=== PATIENT | female | born 1985 | race Two or more races ===

== ENCOUNTER 2020-08-29 11:27 | Outpatient (REF) | payer OTHER, SELFPAY ==
--- NOTE | 2020-08-29 11:36 | XR_ITS ---
EXAMINATION: XR SHOULDER, RIGHT CLINICAL INFORMATION: Pain COMPARISON: None TECHNIQUE: AP external rotation, Grashey, scapular Y, and axillary views of the right shoulder. FINDINGS: Bone alignment is normal. No fracture or dislocation is seen. Joint spaces are normal. Soft tissues are normal. XR/XR shoulder RT min 2V IMPRESSION: Normal right shoulder.
== END 2020-08-29 11:28 | disposition home or self-care (01) ==
LOC: HO.HMGCX 11:27
PROVIDERS: Visit Provider Nurse Practitioner Family
DX: M25.511 Pain in right shoulder (principal)
CPT/HCPCS: 73030

== ENCOUNTER 2022-10-24 17:10 | Outpatient (REF) | payer OTHER, SELFPAY ==
[2022-10-24 17:21] LABS: MANUAL DIFF FLAG NO
[2022-10-24 17:37] LABS: Basophils Percent Auto 0.5 % (0-2); Eosinophils Absolute Auto 0.2 X10*3/uL (0.0-0.4); Eosinophils Percent Auto 2.1 % (0-4); Hematocrit 35.8 % (37.0-47.0); Hemoglobin 12.1 g/dl (12.0-16.0); Imm Gran Abs Auto 0.01 X10*3/uL (0.00-0.03); Imm Gran Pct Auto 0.1 % (0.0-0.4); Lymphocytes Absolute Auto 2.1 X10*3/uL (1.2-4.9); Lymphocytes Percent Auto 27.6 % (20-40); Mean Corpuscular HGB Conc 33.8 g/dl (31.0-35.0); Mean Corpuscular Hemoglobin 30.7 pg (27.0-33.0); Mean Corpuscular Volume 90.9 fL (80.0-98.0); Mean Platelet Volume 9.4 fL (9.4-12.3); Monocytes Absolute Auto 0.6 X10*3/uL (0.1-1.2); Monocytes Percent Auto 7.5 % (2-11); Neutrophils Absolute Auto 4.8 x10*3/uL (2.0-8.3); Neutrophils Percent Auto 62.2 % (45-73); Platelet Count 364 X10*3/uL (160-400); Red Blood Count 3.94 X10*6/uL (4.20-5.50); Red Cell Distribution Width 12.3 % (11.0-16.0); White Blood Count 7.7 X10*3/uL (4.8-10.8)
== END 2022-10-24 17:11 | disposition home or self-care (01) ==
LOC: HO.LAB 17:10
PROVIDERS: PCP Internal Medicine; Visit Provider Physician Assistant Medical
DX: N63.31 Unspecified lump in axillary tail of the right breast (principal)
CPT/HCPCS: 36415; 85025

== ENCOUNTER 2022-10-28 08:51 | Outpatient (REF) | payer OTHER, SELFPAY ==
--- NOTE | ~2022-10-28 | MM_ITS ---
EXAMINATION: MM DIAGNOSTIC DIGITAL BREAST TOMOSYNTHESIS, BILATERAL US DIAGNOSTIC ULTRASOUND BREAST (AXILLA), RIGHT CLINICAL INFORMATION: 37-year-old with recent palpable concern high right axilla for 5 days. Symptoms resolved today. The lifetime risk of breast cancer based on the Tyrer-Cuzick Model is 11%. COMPARISON: Bilateral mammography and right breast ultrasound 11/03/2016. TECHNIQUE: Digital breast tomosynthesis is performed in both the craniocaudal and mediolateral oblique views along with computer-aided detection (CAD). Synthesized 2D images are generated from the tomosynthesis. Ultrasound is targeted to the area of clinical concern corresponding to the right axilla. Grayscale imaging and color Doppler are performed without and with harmonics. FINDINGS: There are scattered areas of fibroglandular density (ACR BI-RADS breast composition Category b). There are no significant masses, abnormal calcifications, or other abnormalities. No skin thickening or coarsening of the Austin's ligaments. Symptom marker overlies right axillary node. Ultrasound demonstrates no cystic or solid mass or intradermal lesion. There is no architectural abnormality. No hyperemia or skin thickening or edema tracking in soft tissue plane. There is a right axillary node near the area of symptoms measuring 1.1 cm in short axis with normal shannen architecture and color flow. Smaller node also noted in this area. No lymphadenopathy demonstrated. Results are discussed with the patient at time of visit. MM/MM tomosynthesis diagnostic BI IMPRESSION: 1. No mammographic evidence of malignancy. 2. Unremarkable targeted right axillary ultrasound. No mass or adenopathy. ASSESSMENT: BI-RADS 2: Benign RECOMMENDATION: 1. Patient should be managed based on the clinical impression. If there is still clinically palpable concern, further evaluation may be considered with surgical consult. 2. Otherwise, routine annual screening mammography, beginning age 40, or earlier as clinical risk factors warrant. This patient's information was entered into a reminder system with a target due date for their next mammogram.
== END 2022-10-28 08:52 | disposition home or self-care (01) ==
LOC: HO.MAMMO 08:51
PROVIDERS: PCP Internal Medicine; Visit Provider Physician Assistant Medical
DX: R22.31 Localized swelling, mass and lump, right upper limb (principal)
CPT/HCPCS: 76642; 77062; 77066

== ENCOUNTER 2023-06-23 13:35 | Outpatient (AMB) | payer OTHER, SELFPAY ==
--- OUTSIDE RECORDS SUMMARY | 2023-06-23 13:37 | XMS_ITS | Continuity of Care Document ---
Author Name Unknown Organization [facility] ter Address [address] [place] [address]- Care Team Providers Care Social Staff Worker Name Role Phone Martir Redman MD, Helen Rangel Primary Care Physician [phone] [place] [facility] [place] [id number] Date(s): 09/08/21 - 09/08/[address] [address]- Encounter Diagnosis Corneal abrasion(Final) - 09/08/21 Discharge Disposition: A-D/C Home Attending Physician: Adrian Mace MD Admitting Physician: Adrian Mace MD Referring Physician: Not on Staff, Referring MD Allergies, Adverse Reactions, Alerts Substance Reaction Severity Status NKA Active Immunizations Given and Recorded Vaccine Date Status Refusal Reason Measles/Mumps/Rubella Virus Vaccine 10/11/19 Given Medications albuterol inhaler (OP) 0 Refills, Maintenance Start Date: 03/08/19 Status: Ordered ciprofloxacin 0.3% ophthalmic solution 2 drops, Eye, Right, Every 4 hours, for 7 days, # 5 mL, 0 Refills, Acute 09/15/21 12:46:00 EST, 09/08/21 12:46:00 EST, [facility]hth [facility], [id number], Partial fill upon patient request if the prescription is for a schedule II opioid drug.... Start Date: 09/08/21 Stop Date: 09/15/21 Status: Ordered ciprofloxacin 0.3% ophthalmic solution 2 drops, Eyes, Both, Every 4 hours, for 7 days, # 5 mL, 0 Refills, Acute 09/15/21 13:12:00 EST, 09/08/21 13:12:00 EST, Ophth Solution, [facility]/pharmacy #[id number], Partial fill upon patient request if the prescription is for a schedule II opioid drug., 2 drops... Start Date: 09/08/21 Stop Date: 09/15/21 Status: Ordered Depo-Provera 400 mg/mL intramuscular suspension 1 mL = 400 mg, Intramuscular, Every 2 months, Maintenance, 08/13/20 8:19:00 EST, Suspension, Partial fill upon patient request if the prescription is for a schedule II opioid drug. Start Date: 08/13/20 Status: Ordered ketorolac 0.45% ophthalmic solution 1 drops, Eyes, Both, 4 times a day, # 30 each, 0 Refills, Maintenance, 09/08/21 13:12:00 EST, Solution, [facility]/pharmacy #[id number], Partial fill upon patient request if the prescription is for a schedule II opioid drug., 1 drops Eyes, Both 4 times a day, 163,... Start Date: 09/08/21 Status: Ordered ketorolac 0.5% ophthalmic solution 2 drops, Eyes, Both, 4 times a day, PRN Pain , Moderate, # 10 mL, 0 Refills, Maintenance, 09/08/21 12:47:00 EST, Solution, [facility] #[id number], Partial fill upon patient request if the prescription is for a schedule II opioid drug., 2 drops Ey... Start Date: 09/08/21 Status: Ordered Readi-Cat 2 oral suspension See Instructions, 2 bottles as per radiology recommendations when the evening before 1 the morning of CAT scan, # 2 pack/packet, 0 Refills, Maintenance, 08/27/20 15:16:00 EST, [facility] #[id number], Partial fill upon patient request if the presc... Start Date: 08/27/20 Status: Ordered Problem List Condition Effective Dates Status Health Status Inform ant Anxiety(Confirmed) Active Asthma(Confirmed) Active Chlamydia(Confirmed) 2004 Active Migraines(Confirmed) Active Vital Signs Most recent to oldest [Reference Range]: 1 2 Height 163 cm (09/08/21 12:09 PM) 163 cm (09/08/21 11:30 AM) Weight 75 kg (09/08/21 12:09 PM) 75 kg (09/08/21 11:30 AM) Oxygen Saturation [94-100 %] 100 % (09/08/21 12:09 PM) 100 % (09/08/21 11:30 AM) Pulse Rate [55-90 bpm] 84 bpm (09/08/21 12:09 PM) 85 bpm (09/08/21 11:30 AM) Body Mass Index [18.5-24.99] 28.23 *H* (09/08/21 11:30 AM) Blood Pressure [90-138/55-84 mm Hg] 118/ 61mm Hg (09/08/21 12:09 PM) 128/61mm Hg (09/08/21 11:30 AM) Respiratory Rate [16-30 br/min] 16 br/mi n (09/08/21 12:09 PM) 16 br/min (09/08/21 11:30 AM) Temperature [96.8-100.4 DegF] 98.5 DegF (09/08/21 11:30 AM) Mode of Delivery (Oxygen) Room air (09/08/21 11:30 AM) Blood pressure sites Arm, right (09/08/21 11:30 AM) Temperature Route Oral (09/08/21 11:30 AM) Dry Weight 75 kg (09/08/21 12:09 PM) 75 kg (09/08/21 11:30 AM) Weight Obtained Via Standing scale (09/08/21 11:30 AM) Dry Weight Obtained Via Standing scale (09/08/21 11:30 AM) Social History Social History Type Response Smoking Status Never (less than 100 in lifetime) entered on: 09/02/19 Sex
--- OUTSIDE RECORDS SUMMARY | 2023-06-23 13:37 | XMS_ITS | Continuity of Care Document ---
Author Name Unknown Organization [facility] ter Address [address] [place] [address]- Care Team Providers Care Box Sealing Inspector Name Role Phone Martir Redman MD, Adelaida Rangel Primary Care Physician [phone] [place] [facility] [place] 09/20/19 - 09/27/[address] [address]- [facility] Attending Physician: Kirt Eng MD Allergies, Adverse Reactions, Alerts Substance Reaction Severity Status NKA Active Medications Adult Aspirin 81 mg oral tablet, chewable 1 tablet = 81 mg, Daily, 0 Refills, Maintenance, 06/21/19 15:32:58 EDT Start Date: 06/21/19 Status: Ordered albuterol inhaler (OP) 0 Refills, Maintenance Start Date: 03/08/19 Status: Ordered famotidine 10 mg oral tablet 1 tablet = 10 mg, By Mouth, 2 times a day, # 20 tablet, 0 Refills, Maintenance, 09/02/19 22:48:00 EST, Tablet, [facility] #[id number], 162, cm, 09/02/19 21:02:00 EST, Height, 67, kg, 03/08/19 16:41:00 EDT, Dry Weight Start Date: 09/02/19 Stop Date: 09/29/19 Status: Ordered Iron Chews = 15 mg, By Mouth, Daily, 0 Refills, Maintenance, 06/21/19 15:33:09 EDT Start Date: 06/21/19 Status: Ordered Premarin Vaginal 0.625 mg/gm cream with applicator See Instructions, Vaginally Daily before dinner, # 42 Gm, 0 Refills, Maintenance Start Date: 10/21/12 Status: Ordered 1 0 Refills, Maintenance, 06/21/19 15:32:51 EDT Start Date: 06/21/19 Status: Ordered Problem List Condition Effective Dates Status Health Status Inform ant Anemia in mother complicatin g , childbirth AND/OR puerperium(Confirmed) 1 09/02/19 Active Anxiety(Confirmed) Active Chlamydia(Confirmed) 2004 Active Pre-eclampsia(Confirmed) Active 1Problem added by Discern Expert Results Microbiology Reports TEST:Group B Strep Culture STATUS:Auth (Verified) BODY SITE: SOURCE:VAGINO COLLECTED DATE/TIME:09/20/19 9:30 AM Group B Strep Culture SPECIMEN DESCRIPTION : VAGINORECTAL SWAB SPECIAL REQUESTS : NONE CULTURE : STREPTOCOCCI, GR.B BETA HEMOLYTIC ISOLATED SUSCEPTIBILITY TESTING NOT ROUTINELY PERFORMED ON THIS ISOLATE. ISOLATION OF GROUP B STREPTOCOCCI FROM THIS PATIENT INDICATES VAGINORECTAL COLONIZATION. PLEASE REFER TO CURRENT ACOG GUIDELINES FOR SCREENING AND MANAGEMENT OF COLONIZED WOMEN. REPORT STATUS : FINAL 09/22/2019 TEST:Urine Culture STATUS:Auth (Verified) BODY SITE: SOURCE:CLEAN COLLECTED DATE/TIME:09/20/19 9:25 AM Urine Culture SPECIMEN DESCRIPTION : CLEAN CATCH (URINE) SPECIAL REQUESTS : NONE CULTURE : <10,000 COL/ML REPORT STATUS : FINAL 09/21/2019 Social History Social History Type Response Smoking Status Never (less than 100 in lifetime) entered on: 09/02/19 Sex
--- OUTSIDE RECORDS SUMMARY | 2023-06-23 13:37 | XMS_ITS | Continuity of Care Document ---
Author Name Unknown Organization [facility] ter Address [address] [place] [address]- Care Team Providers Care Superintendent Distribution Name Role Phone Martir Redman MD, Adelaida Rangel Primary Care Physician [phone] Encounter [facility] [place] Date(s): 10/09/19 - 10/11/[address] [address]- [facility] Discharge Disposition: A-D/C Home Attending Physician: Cande Patricio DO Admitting Physician: Cande Patricio DO Referring Physician: Cande Patricio DO Allergies, Adverse Reactions, Alerts Substance Reaction Severity Status NKA Active Immunizations Given and Recorded Vaccine Date Status Refusal Reason Measles/Mumps/Rubella Virus Vaccine 10/11/19 Given Medications Adult Aspirin 81 mg oral tablet, chewable 1 tablet = 81 mg, Daily, 0 Refills, Maintenance, 06/21/19 15:32:58 EDT Start Date: 06/21/19 Status: Ordered albuterol inhaler (OP) 0 Refills, Maintenance Start Date: 03/08/19 Status: Ordered famotidine 10 mg oral tablet 1 tablet = 10 mg, By Mouth, 2 times a day, # 20 tablet, 0 Refills, Maintenance, 09/02/19 22:48:00 EST, Tablet, [facility] #[id number], 162, cm, 09/02/19 21:02:00 EST, Height, 67, kg, 03/08/19 16:41:00 EDT, Dry Weight Start Date: 09/02/19 Stop Date: 09/29/19 Status: Ordered ibuprofen 800 mg oral tablet 800 mg, 1, tablet, By Mouth, Every 8 hours, PRN, for 10 days, not to exceed 2400 mg/day, # 30 tablet, Refills 0, Tot. Refills 0, Acute 02/21/20 8:40:00 EST, Pain , Moderate, 10/11/19 8:40:00 EST, Route to Pharmacy Electronically, [facility]... Start Date: 10/11/19 Stop Date: 10/21/19 Status: Ordered Iron Chews = 15 mg, By Mouth, Daily, 0 Refills, Maintenance, 06/21/19 15:33:09 EDT Start Date: 06/21/19 Status: Ordered Premarin Vaginal 0.625 mg/gm cream with applicator See Instructions, Vaginally Daily before dinner, # 42 Gm, 0 Refills, Maintenance Start Date: 10/21/12 Status: Ordered 1 0 Refills, Maintenance, 06/21/19 15:32:51 EDT Start Date: 06/21/19 Status: Ordered Tamiflu 75 mg oral capsule 1 capsule = 75 mg, By Mouth, 2 times a day, 0 Refills, Maintenance, 09/30/19 8:45:00 EST Start Date: 09/30/19 Status: Ordered Problem List Condition Effective Dates Status Health Status Inform ant Anxiety(Confirmed) Active Asthma(Confirmed) Active Chlamydia(Confirmed) 2004 Active Migraines(Confirmed) Active Vital Signs Most recent to oldest [Reference Range]: 1 2 3 Height 162 cm (10/11/19 9:31 AM) 162 cm (10/11/19 12:15 AM) 162 cm (10/10/19 10:15 AM) Weight 80.3 kg (10/09/19 5:04 AM) 80.3 kg (10/09/19 12:41 AM) Oxygen Saturation [94-100 %] 99 % (10/11/19 12:15 AM) 99 % (10/09/19 7:00 PM) 99 % (10/09/19 6:45 PM) Pulse Rate [55-90 bpm] 99 bpm *H* (10/11/19 9:31 AM) 86 bpm (10/11/19 12:15 AM) 99 bpm *H* (10/10/19 4:30 PM) Body Mass Index [18.5-24.99] 30.6 *>HHI* (10/09/19 5:04 AM) Blood Pressure [90-138/55-84 mm Hg] 112/67mm Hg (10/11/19 9:31 AM) 115/59mm Hg (10/10/19 4:30 PM) 104/51mm Hg (10/10/19 10:15 AM) Respiratory Rate [16-30 br/min] 18 br/min (10/11/19 7:19 AM) 18 br/min (10/11/19 7:19 AM) 18 br/min (10/11/19 2:07 AM) Temperature [96.8-100.4 DegF] 98.3 DegF (10/11/19 9:31 AM) 98.6 DegF (10/11/19 12:15 AM) 98.7 DegF (10/10/19 4:30 PM) Mode of Delivery (Oxygen) Room air (10/11/19 12:15 AM) Room air (10/09/19 11:07 AM) Room air (10/09/19 7:58 AM) Blood pressure sites Arm, right (10/11/19 9:31 AM) Arm, left (10/10/19 4:30 PM) Arm, left (10/10/19 10:15 AM) Temperature Route Oral (10/11/19 9:31 AM) Oral (10/11/19 12:15 AM) Oral (10/10/19 4:30 PM) Dry Weight 80.3 kg (10/09/19 5:04 AM) 80.3 kg (10/09/19 12:41 AM) Weight Obtained Via Standing scale (10/09/19 12:41 AM) Dry Weight Obtained Via Standing scale (10/09/19 12:41 AM) Sensory deficits None (10/09/19 5:04 AM) Mobility assistance Independent (10/09/19 5:04 AM) Social History Social History Type Response Smoking Status Never (less than 100 in lifetime) entered on: 09/02/19 Sex
--- OUTSIDE RECORDS SUMMARY | 2023-06-23 13:37 | XMS_ITS | Continuity of Care Document ---
Author Name Unknown Organization [facility] ter Address [address] [place] [address]- Care Team Providers Care Electrical Equipment Assembler Name Role Phone Martir Redman MD, Helen Rangel Primary Care Physician Encounter [facility] [place] Date(s): 01/08/22 - 01/08/[address] [address]- Encounter Diagnosis COVID-19(Final) - 01/08/22 Discharge Disposition: A-D/C Home Attending Physician: Maria Ines Alfredo MD Admitting Physician: Maria Ines Alfredo MD Referring Physician: Not on Staff, Referring MD Allergies, Adverse Reactions, Alerts No Known Allergies Immunizations Given and Recorded Vaccine Date Status Refusal Reason Measles/Mumps/Rubella Virus Vaccine 10/11/19 Given Medications albuterol CFC free 90 mcg/inh inhalation aerosol 2, puffs, Inhalation, 4 times a day, PRN, # 18 Gm, Refills 0, Tot. Refills 0, Maintenance, 01/08/2210:51:00 EDT, Aerosol, Route to Pharmacy Electronically, [id number], [facility]/pharmacy #[id number], 163, cm, 09/08/21 12:09:00 EST, Heig... Start Date: 01/08/22 Status: Ordered albuterol inhaler (OP) 0 Refills, Maintenance Start Date: 03/08/19 Status: Ordered Depo-Provera 400 mg/mL intramuscular suspension 1 mL = 400 mg, Intramuscular, Every 2 months, Maintenance, 08/13/20 8:19:00 EST, Suspension, Partial fill upon patient request if the prescription is for a schedule II opioid drug. Start Date: 08/13/20 Status: Ordered ketorolac 0.45% ophthalmic solution 1 drops, Eyes, Both, 4 times a day, # 30 each, 0 Refills, Maintenance, 09/08/21 13:12:00 EST, Solution, [facility]/pharmacy #[id number], Partial fill upon patient request if the prescription is for a schedule II opioid drug., 1 drops Eyes, Both 4 times a day, 163,... Start Date: 09/08/21 Status: Ordered ketorolac 0.5% ophthalmic solution 2 drops, Eyes, Both, 4 times a day, PRN Pain , Moderate, # 10 mL, 0 Refills, Maintenance, 09/08/21 12:47:00 EST, Solution, [facility] #[id number], Partial fill upon patient request if the prescription is for a schedule II opioid drug., 2 drops Ey... Start Date: 09/08/21 Status: Ordered nirmatrelvir-ritonavir 150 mg-100 mg oral tablet See Instructions, Paxlovid is a combination of 300 mg nirmatrelvir (two 150mg tablets) with 100mg ritonavir (one 100mg tablet), with all 3 tablets taken together twice daily for 5 days, # 1 pack/packet, 0 Refills, Soft Stop, 01/08/22 10:47:00 EDT, Tab... Start Date: 01/08/22 Status: Ordered Readi-Cat 2 oral suspension See Instructions, 2 bottles as per radiology recommendations when the evening before 1 the morning of CAT scan, # 2 pack/packet, 0 Refills, Maintenance, 08/27/20 15:16:00 [id number], Partial fill upon patient request if the presc... Start Date: 08/27/20 Status: Ordered Problem List Condition Effective Dates Status Health Status Inform ant Anxiety(Confirmed) Active Asthma(Confirmed) Active Chlamydia(Confirmed) 2004 Active Migraines(Confirmed) Active Results Radiology Reports * Exam Date Time Procedure Performing Provider Status 01/08/22 10:44 AM Chest 2 Views Frontal and Lat Manju Mahoney; Karla (Verified) Notes: (Chest 2 Views Frontal and Lat) Reason For Exam: Chest Pain;Other: RESULT: Chest 2 Views Frontal and Lat Chest 2 Views Frontal and Lat HPI: patient diagnosed with COVID yesterday, body aches, sore throat, cough and increased asthma symptoms INDICATION: Chest pain. COMPARISON: None. FINDINGS: LINES AND TUBES: None. LUNGS AND PLEURA: Clear lungs. Normal pulmonary vascularity. No pleural effusion. No pneumothorax. HEART, MEDIASTINUM AND ANGEL: Heart is normal in size. Normal mediastinal and hilar contour. BONES AND SOFT TISSUES: No acute abnormality. IMPRESSION: No evidence of acute abnormality. I have personally reviewed the images and I agree with this report. WSN: [id number] Ordering Physician: Jenny Key Dictated By: Sukhjinder Priest MD Dictated Date/Time: 01/08/22 10:51 a Reviewed By: Kirt Harper MD Signed By: Kirt Harper MD Signed Date/Time: 01/08/22 10:56 am Transcribed By: ANTONIO Transcribed Date/Time: 01/08/22 10:50 am Vital Signs Most recent to oldest [Reference Range]: 1 2 3 Oxygen Saturation [94-100 %] 99 % (01/08/22 1:28 PM) 97 % (01/08/22 9:21 AM) 100 % (01/08/22 9:15 AM) Pulse Rate [55-90 bpm] 72 bpm (01/08/22 1:28 PM) 81 bpm (01/08/22 9:21 AM) 90 bpm (01/08/22 9:15 AM) Blood Pressure [90-138/55-84 mm Hg] 107/67mm Hg (01/08/22 1:28 PM) 97/60mm Hg (01/08/22 9:21 AM) Respiratory Rate [16-30 br/min] 18 br/min (01/08/22:28 PM) 20 br/min (01/08/22 9:21 AM) Temperature [96.8-100.4 DegF] 97.1 DegF (01/08/22 1:28 PM) 97.6 DegF (01/08/22 9:21 AM) Mode of Delivery (Oxygen) Room air (01/08/22 1:28 PM) Room air (01/08/22 9:21 AM) Room air (01/08/22 9:15 AM) Blood pressure sites Arm, right (01/08/22 9:21 AM) Temperature Route Oral (01/08/22 1:28 PM) Oral (5/11/22 9:21 AM) Social History Social History Type Response Smoking Status Never (less than 100 in lifetime) entered on: 09/02/19 Sex
--- OUTSIDE RECORDS SUMMARY | 2023-06-23 13:37 | XMS_ITS | Continuity of Care Document ---
Author Name Unknown Organization [facility] ter Address [address] [place] [address]- Care Team Providers Care Laboratory Associate Name Role Phone Martir Redman MD, Adelaida Rangel Primary Care Physician [phone] Encounter [facility] [place] Date(s): 09/30/19 - 09/30/[address] [address]- [facility] Discharge Disposition: A-D/C Home Attending Physician: Kymberly Maloney MD Admitting Physician: Kymberly Maloney MD Referring Physician: Kymberly Maloney MD Allergies, Adverse Reactions, Alerts Substance Reaction [...] 0 Refills, Maintenance, 09/02/19 22:48:00 EST, Tablet, [facility] #[id number], 162, cm, 09/02/19 21:02:00 EST, Height, 67, kg, 03/08/19 16:41:00 EDT, Dry Weight Start Date: 09/02/19 Stop Date: 09/29/19 Status: Ordered Iron Chews = 15 mg, By Mouth, Daily, 0 Refills, Maintenance, 06/21/19 15:33:09 EDT Start Date: 06/21/19 Status: Ordered Premarin Vaginal 0.625 mg/gm cream with applicator See Instructions, Vaginally Daily before dinner, # 42 Gm, 0 Refills, Maintenance Start Date: 2/21/13 Status: Ordered 1 0 Refills, Maintenance, 06/21/19 [...] AND/OR puerperium(Confirmed) 1 09/02/19 Active Anxiety(Confirmed) Active Asthma(Confirmed) Active Chlamydia(Confirmed) 2004 Active Migraines(Confirmed) Active Pre-eclampsia(Confirmed) Active 1Problem added by Discern Expert Vital Signs Most recent to oldest [Reference Range]: 1 2 3 Weight 80.4 kg (09/30/19 8:29 AM) Oxygen Saturation [94-100 %] 97 % (09/30/19 8:54 AM) 97 % (09/30/19 8:43 AM) Pulse Rate [55-90 bpm] 99 bpm *H* (09/30/19 8:43 AM) Blood Pressure [90-138/55-84 mm Hg] 118/47mm Hg (09/30/19 8:54 AM) 116/57mm Hg (09/30/19 8:43 AM) Respiratory Rate [16-30 br/min] 20 br/min (09/30/19 9:26 AM) 20 br/min (09/30/19 9:05 AM) 20 br/min (09/30/19 8:43 AM) Temperature [96.8-100.4 DegF] 98.2 DegF (09/30/19 8:43 AM) Temperature Route Oral (09/30/19 8:43 AM) Weight Obtained Via Standing scale (09/30/19 8:29 AM) Social History Social History Type Response Smoking Status Never (less than 100 in lifetime) entered on: 09/02/19 Sex
--- OUTSIDE RECORDS SUMMARY | 2023-06-23 13:37 | XMS_ITS | Continuity of Care Document ---
Author Name Unknown Organization [facility] ter Address [address] [place] [address]- Care Team Providers Care Refrigerating Engineer Head Name Role Phone Martir Redman MD, Adelaida Rangel Primary Care Physician Encounter [facility] [place] Date(s): 08/29/19 - 08/29/[address] [address]- [facility] Attending Physician: Not on Staff, Attending MD Allergies, Adverse Reactions, Alerts Substance Reaction Severity Status NKA Active Medications Adult Aspirin 81 mg oral tablet, chewable 1 tablet = 81 mg, Daily, 0 Refills, Maintenance, 06/21/19 15:32:58 EDT Start Date: 06/21/19 Status: Ordered albuterol inhaler (OP) 0 Refills, Maintenance Start Date: 03/08/19 Status: Ordered Iron Chews = 15 mg, [...] Status Health Status Inform ant Anxiety(Confirmed) Active Chlamydia(Confirmed) 2005 Active Pre-eclampsia(Confirmed) Active
[2023-06-23 14:30] VITALS: BP 102/64; PULSE 101; TEMP 36.6; O2SAT 97; BMI 26.6
--- NOTE | 2023-06-23 14:30 | AM.OFFWIN_ITS ---
Intake Vital Signs 06/23/23 14:30 Height 5 ft 5 in Weight 160 lb BMI 26.6 BP 102/64 Blood Pressure Location Lt brachial Position Sitting Pulse 101 H Pulse Source Pulse Oximeter Temp 97.9 F Temp Source Temporal Artery Scan Pulse Oximetry (%) 97 Intake Visit Reasons: EP, Upper abdominal pain [phone] Intake Note: pt is here for c/o upper abd pain/rib cage 3 days Patient Tobacco Use Status: Never used Tobacco Allergies No Known Allergies Allergy (Verified 06/23/23 14:49) Medication List - Last Reconciled 06/23/23 by Ihsan Le MD No Known Home Meds Do you need a note to return to daycare/school/sports/work: Yes HPI EP, Upper abdominal pain [phone] HPI Details 37-year-old female presents to the [facility] for a sick visit. For the past 3 days patient is complaining of epigastric discomfort. Pain is episodic and spasmodic at times. She vomits when the pain becomes intense. No difficulty urinating. Admits to drinking large quantities of alcohol recently. Associated symptoms of belching and burping present. [facility] Surgical History H/O LEEP History of bunionectomy Family History Father Hepatitis Mother Asthma Diabetes Hypertension Maternal Grandmother Hypertension Paternal Grandmother Diabetes Hypertension Leukemia Paternal Aunt Uterine cancer Maternal Aunt Diabetes Breast cancer Social History Patient Tobacco Use Status: Never used Tobacco Physical Exam Vital Signs: Last Vital Signs Temp 97.9 F 06/23/23 14:30 Pulse 101 H 06/23/23 14:30 BP 102/64 06/23/23 14:30 Pulse Ox 97 06/23/23 14:30 BMI result Body Mass Index 26.6 Const General: cooperative and healthy appearing Nutritional Appearance: well nourished Orientation/consciousness: patient oriented x3 Limitations: no limitations HEENT Head: Yes normal to inspection Eyes General: appearance normal, both eyes and all related structures Neck Neck: Yes normal visual inspection Chest Chest palpation & inspection: normal palpation of entire chest wall Resp Effort & Inspection: normal respiratory effort GI Other: Bowel sounds well heard all over. No organomegaly. Neuro General: patient oriented x3 Assessment & Plan Assessment & Plan (1) Abdominal pain: Code(s): R10.9 - Unspecified abdominal pain Plan: Blood work ordered including for serum amylase and lipase. Patient was advised to abstain from alcohol and carbonated drinks. Ppi has been started. If symptoms do not improve, I encouraged her to follow-up here. Orders: Orders Basic Metabolic Panel Today R10.9 - Unspecified abdominal pain Liver Panel Today R10.9 - Unspecified abdominal pain Lipase Today R10.9 - Unspecified abdominal pain Thyroid Stimulating Hormone Today R10.9 - Unspecified abdominal pain Complete Blood Count no Diff Today R10.9 - Unspecified abdominal pain Amylase Today R10.9 - Unspecified abdominal pain Coding Level of Care Code Est Pt Level 4 (97979) Diagnoses Abdominal pain R10.9
== END 2023-06-23 15:03 | disposition home or self-care (01) ==
PROVIDERS: PCP Internal Medicine; Visit Provider Internal Medicine
DX: R10.9 Unspecified abdominal pain (principal)
CPT/HCPCS: 99214

== ENCOUNTER 2023-06-24 11:26 | Outpatient (REF) | payer OTHER, SELFPAY ==
[2023-06-24 13:47] LABS: Hematocrit 38.9 % (37.0-47.0); Hemoglobin 12.7 g/dl (12.0-16.0); Mean Corpuscular HGB Conc 32.6 g/dl (31.0-35.0); Mean Corpuscular Volume 94.9 fL (80.0-98.0); Mean Platelet Volume 10.4 fL (9.4-12.3); Platelet Count 382 X10*3/uL (160-400); Red Cell Distribution Width 13.1 % (11.0-16.0); White Blood Count 6.4 X10*3/uL (4.8-10.8)
[2023-06-24 14:41] LABS: Alanine Aminotransferase 12 U/L (0-31); Albumin Level 4.2 g/dL (3.5-5.0); Alkaline Phosphatase 46 U/L (39-117); Amylase 73 U/L (28-100); Anion Gap 10 (12-20); Aspartate Amino Transferase 18 U/L (5-31); Bilirubin Direct 0.2 mg/dL (0.0-0.5); Bilirubin Total 0.6 mg/dL (0.0-1.0); Blood Urea Nitrogen 9 mg/dL (9-16); Calcium 9.4 mg/dL (8.4-10.2); Carbon Dioxide 24 mmol/L (22-29); Chloride 109 mmol/L (96-108); Estimated Glomerular Filt Rate > 60; Glucose Random 93 mg/dL (60-115); Lipase 19 U/L (8-78); Potassium 3.9 mmol/L (3.3-5.1); Sodium 139 mmol/L (135-145); Total Protein 7.6 g/dL (6.5-8.0)
[2023-06-24 14:57] LABS: Thyroid Stimulating Hormone 0.62 uIU/mL (0.32-4.0)
== END 2023-06-24 11:27 | disposition home or self-care (01) ==
LOC: HO.HMGCLDS 11:26
PROVIDERS: PCP Internal Medicine; Visit Provider Internal Medicine
DX: R10.9 Unspecified abdominal pain (principal)
CPT/HCPCS: 36415; 80048; 80076; 82150; 83690; 84443; 85027

== ENCOUNTER 2024-06-15 09:35 | Outpatient (AMB) | payer OTHER, SELFPAY ==
--- OUTSIDE RECORDS SUMMARY | 2024-06-15 09:37 | XMS_ITS | Continuity of Care Document ---
Author Organization [facility] ter Address [address] [place] [id number]- Care Team Providers Care Voip Network Engineer Name Role Phone Martir Redman MD, Helen Rangel Primary Care Physician [place] [facility] [place]26[place] - 02/26/[address] [address] Discharge Disposition: A-D/C Home Attending Physician: Álvaro Jackson MD Admitting Physician: Álvaro Jackson MD Referring Physician: Álvaro Jackson MD Allergies, Adverse Reactions, Alerts No Known Allergies Immunizations Given and Recorded Vaccine Date Status Refusal Reason Measles/Mumps/Rubella Virus Vaccine 10/11/19 Given Medications albuterol CFC free 90 mcg/inh inhalation aerosol 2, puffs, Inhalation, 4 times a day, PRN, # 18 Gm, Refills 0, Tot. Refills 0, Maintenance, 01/08/2210:51:00 EDT, Aerosol, Route to Pharmacy Electronically, [id number], [facility]/pharmacy #[id number], 163, cm, 09/08/21 12:09:00 EST, Heig... [...] 0 Refills, Maintenance, 09/08/21 13:12:00 EST, Solution, [facility]/pharmacy #[id number], Partial fill upon patient request if the prescription is for a schedule II opioid drug., 1 drops Eyes, Both 4 times a day, 163,... Start Date: 09/08/21 Status: Ordered ketorolac 0.5% ophthalmic solution 2 drops, Eyes, Both, 4 times a day, PRN Pain , Moderate, # 10 mL, 0 Refills, Maintenance, 09/08/21 12:47:00 EST, Solution, [facility] #[id number], Partial fill upon patient request if the [...] 2 pack/packet, 0 Refills, Maintenance, 08/27/20 15:16:[id number], Partial fill upon patient request if the presc... Start Date: 08/27/20 Status: Ordered Problem List Condition Confirmation Course Effective Dates Status Health St at Informant Anxiety Confirmed Active Asthma Confirmed Active Chlamydia Confirmed 2004 Active Migraines Confirmed Active Obese class I Confirmed Active Vital Signs Most recent to oldest [Reference Range]: 1 Height 162 cm (02/26/24 11:18 AM) Weight 68.8 kg (02/26/24 11:05 AM) Oxygen Saturation [94-100 %] 99 % (02/26/24 11:05 AM) Pulse Rate [55-90 bpm] 98 bpm *H* (02/26/24 11:05 AM) Blood Pressure [90-138/55-84 mm Hg] 122/ 69mm Hg (02/26/24 11:05 AM) Respiratory Rate [16-30 br/min] 18 br/mi n (02/26/24 11:05 AM) Temperature [96.8-100.4 DegF] 98.6 DegF (02/26/24 11:05 AM) Mode of Delivery (Oxygen) Room air (02/26/24 11:05 AM) Blood pressure sites Arm, right (02/26/24 11:05 AM) Temperature Route Oral (02/26/24 11:05 AM) Dry Weight 68.8 kg (02/26/24 11:05 AM) Weight Obtained Via Standing scale (02/26/24 11:05 AM) Dry Weight Obtained Via Standing scale (02/26/24 11:05 AM) Social History Social History Type Response Smoking Status Never (less than 100 in lifetime) entered on: 09/02/19 Sex Note * Catherine Stephens RN: PERFORM Event Display: Discharge/Transfer Note Hospital Authored Date: [id number] Nursing Discharge Note Entered On: 02/26/2024 14:17 EDT Performed On: 02/26/2024 14:16 EDT by Catherine Stephens RN Nursing Discharge Note 2 Discharge Time : 02/26/2024 14:16 EDT Discharge Level of Care at Discharge : Home/[facility] Care Patient Left Unit Via : Ambulatory Patient Accompanied Off Unit with : Significant other DC Instructions Provided & Signed by Pt : Yes Patient Understands D/C Instructions : Yes Patient Instructions Discharge Signed : Yes Did Pt have Specialty Bed or Wound Vac : No Catherine Stephens RN - 02/26/2024 14:16 EDT * Catherine Stephens RN: PERFORM Event Display: Patient Education/Instruction Authored Date: [id number] Inpatient Adult Discharge Instructions. [address] [address] Name: DINAH LEE : 1985?? Visit: 02/26/2024 11:02?? Current Date: 02/26/2024 14:11 ?? Account: [id number]?? Inpatient Adult Discharge Instructions We would like to thank you for allowing us to assist you with your healthcare needs. The following includes patient education materials and information regarding your injury/illness. Our entire staffstrives to provide an excellent experience for our patients and their families. PLEASE ENSURE YOU FOLLOW-UP PER THE INSTRUCTIONS BELOW! ?? YOUR OPINION IS IMPORTANT TO US! Please complete the survey you may receive by mail or email. Your feedback will be used to make improvements to the healthcare experiences of our patients and their families. Surveys are administered by [employer] ?? If further treatment with your primary care physician or another doctor is recommended, it is important for you to keep the appointment. Call your primary care physician or return to the Emergency Department immediately if your condition worsens, fails to improve, or new symptoms develop. If you need to find a doctor, you can call [facility] [employer] for a referral at [phone] or toll free at [phone] ([phone]) or log in to [email or web address].. ?? [facility], in keeping with [facility] guidance, no longer requires face masks for staff, patientsor visitors in most situations. Similiar to time spent indoors at other locations, there is the chance that you were exposed to repiratory viruses during your time with us (such as flu or COVID-19). If you develop symptoms concerning for a viral respiratory infection, please seek testing (and treatment if indicated) from your medical provider or home test kit. ?? You can view and manage your care through the patient portal or by using a health care erin of your choosing. [employer]ively is a website that allows you to securely view your medical information including your hospital discharge summary, office visit summaries, medications and follow-up visits. You can also request appointments, renew medications, and request access to your medical information using a health care erin of your choosing, or just ask a question. You can enroll at [email or web address] or register during your next office visit. You have been discharged from [facility], Patient Care Unit: [id number]??. If you have any questions regarding these instructions, including results of studies pending, afteryou leave, please call us and we will be happy to assist you 23/03. [facility] Your Care Team Attending Physician Manuel LAROSE, Álvaro Pedraza?? Consulting Providers Manuel LAROSE, Álvaro Pedraza?? Tests Performed Below is a partial list of the tests performed during your hospitalization. You may have had other tests and procedures not included in this list. Please discuss all test results with your provider. Complete Urinalysis No tests performed during this visit.?? Primary Care Provider Martir Redman MD , Helen Rangel? Advance Directive Health Care Proxy on File No Discharge Vitals Temperature: 98.6 DegF Height: 162 cm Pulse Rate:??98 bpm??High Weight: 68.8 kg Respiratory Rate: 18 br/min ?? Systolic Blood Pressure: 122 mm Hg ?? Diastolic Blood Pressure: 69 mm Hg ?? Oxygen Saturation: 99 % ?? Studies Pending All studies ordered during this hospital stay have been completed unless listed below. Please discuss all pending results with your provider listed above in these instructions. ?? No incomplete studies found?? What to do next Instructions From Your Doctor ?? Orders?? You Need to Schedule the Following Appointments Follow Up with??[facility] DIRECTOR OF GRADUATE ADMISSIONS Group [phone] Discharge Medications DINAH MEADE :1985 Visit Date:02/26/2024 Medications: Please continue your medications until treatment is completed or stopped by your provider. Medications not listed below should be discontinued. Discuss any questions related to medications with your provider. What How Much When Instructions Next Dose Unchanged Albuterol (albuterol CFC free 90 mcg/ inh inhalation aerosol) 2 puff(s) Inhalation 4 times a day as needed for as needed for wheezing Unchanged Albuterol (albuterol inhaler (OP)) Unchanged Barium Sulfate (Readi-Cat 2 oral suspension) See instructions 2 bottles as per radiology recommendations when the evening before 1 the morning of CAT scan ?? Unchanged Ketorolac Ophthalmic (ketorolac 0.45% ophthalmic solution) 1 Drops Both eyes 4 times a day Unchanged Ketorolac Ophthalmic (ketorolac 0.5% ophthalmic solution) 2 Drops Both eyes 4 times a day as needed for Pain , Moderate Unchanged MedroxyPROGESTERone (Depo-Provera 400 mg/ mL intramuscular suspension) 1 Milliliter Intramuscular Every 2 months Unchanged nirmatrelvir-ritonavir (nirmatrelvir-ritonavir 150 mg-100 mg oral tablet) See instructions Paxlovid is a combination of 300 mg nirmatrelvir (two 150mg tablets) with 100mg ritonavir (one 100mg tablet), with all 3 tablets taken together twice daily for 5 days ?? Prescription Given During Visit No new medications prescribed at time of discharge.?? Laboratory Results Below is a partial list of the most recent Laboratory test results done prior to this discharge. You may have had other tests and procedures not included in this list. Please discuss all test resultswith your provider. Complete Urinalysis (02/26/2024) ???Appear/Color, Urine - YELLOW???Specific [place], Urine - 1.017???pH, Urine - 7.0???Albumin, Urine - TRACE???Glucose, Urine - NEGATIVE???Ketones, Urine - NEGATIVE???Bilirubin, Urine - NEGATIVE???Hemoglobin, Urine - NEGATIVE???Nitrite, Urine - NEGATIVE???Leukocyte, Urine - NEGATIVE???Urobilinogen - NORMAL???WBC's, Urine - 1 /HPF???RBC's, Urine - NONE SEEN???Squamous Epith - 9 /HPF???Amorphous Crystals - MODERATE???Mucus - SLIGHT Allergies (NKA means No Known Allergies) NKA Problems Active Problems??(6) Anxiety?? Asthma?? Chlamydia?? Migraines?? Obese class I? Education Materials Below is the list of Educational Leaflet Providered with your Discharge Instructions. [employer] Patient Education - Possible Miscarriage (Threatened )?? [employer] Patient Education - Bleeding During Early ?? Valuables and Belongings I fully understand and agree that [facility] accepts no responsibility for all my personal property including clothing, toilet articles, radios, jewelry, dentures, hearing aids, rings, money, or any other property that is in my possession or is brought to me after admission. I understand certain valuables may be placed in a hospital safe for a short period of time. I understand that the hospital is not liable for loss or damage due to accident, fire, or other natural occurrence while said property is in the safe. I accept full responsibility for any personal property that I keep with me, and will not hold the hospital responsible in case of loss or disappearance. I acknowledge that i have been encouraged to send valuables and belongings home. ? Other Discharge Information ? Pulmonary Rehab Status?? Pulmonary Rehab Discharge Status?? Respiratory Rate: 18 br/min ? Common Emergency Awareness Tips IS IT A STROKE? Act FAST and Check for these signs: FACE Does the face look uneven? ARM Does one arm drift down? SPEECH Does their speech sound strange? TIME Call at any sign of stroke ?? Heart Attack Signs Chest discomfort: Most heart attacks involve discomfort in the center of the chest and lasts more than a few minutes, or goes away and comes back. It can feel like uncomfortable pressure, squeezing, fullness or pain. Discomfort in upper body: Symptoms can include pain or discomfort in one or both arms, back, neck, jaw or stomach. Shortness of breath: With or without discomfort. Other signs: Breaking out in a cold sweat, nausea, or lightheaded. Remember, MINUTES DO MATTER. If you experience any of these heart attack warning signs, call to get immediate medical attention! ?? Smoking can increase your chances of developing chronic health problems and can cause harmful effects to other family members in your house. If you smoke, you are strongly encouraged to quit. Please call [facility] [employer] Link at [phone] or [phone] ([phone]) or log in to [email or web address] for referrals to smoking cessation programs. ?? 833 Suicide & Crisis Lifeline is available 23/03 if you or someone you know needs to find a reason to keep living. By calling 404 you'll be connected to a skilled, trained counselor at a crisis center in your area. INPATIENT DISCHARGE INSTRUCTIONS SIGNATURE PAGE DINAH MEADE Location:[facility] Registration Date and Time:02/26/2024 11:02 EDT Primary Care Physician: Martir Redman MD , Anu, Attending Physician: Manuel LAROSE, Álvaro Pedraza, I DINAH MEADE, have received the above patient education materials/instructions and have verbalized understanding. If ambulance or transport services are being used I further acknowledgebeing given a choice of service. ?? If you need to contact me, please call me at this number: . Patient/Brim Stitcher Name: Patient/Brim Stitcher Signature: Relationship to Patient: Witness Name/Signature: Date: * Catherine Stephens RN: PERFORM Event Display: Patient Education Leaflets Authored Date: [id number] Possible Miscarriage (Threatened ) ?? [id number] Possible Miscarriage (Threatened ) You may be having a miscarriage. Common signs of a miscarriage are pain and bleeding.??A small amount of bleeding can be normal during the first 3 months of . Often the pain and bleeding stop, and you have a normal and baby.??But heavy bleeding or severe cramping can be an early sign of miscarriage. A miscarriage means??an??unexpected loss of your . At this time, your healthcare provider doesn???t know whether you will have a miscarriage, or if things will clear up and your will continue normally. This can be emotionally difficult. There is little that can be done to change the way you feel. But??understand that miscarriages are common. About 1 or 2 out of every [address] Some even end before you know you are . This happens for a number of reasons, and usually the cause is never known. It???s important youknow that it is not your fault. It didn???t happen because you did anything wrong. Having sex or exercising does not cause a miscarriage. These activities are usually safe unless youhave pain or bleeding, or your healthcare provider tells you to stop. Even minor falls won???t cause a miscarriage. Miscarriages happen because things were not developing as they were supposed to. Nomedicine can prevent a miscarriage. Again, understand that things are uncertain right now. You may still have some bleeding. This may be light spotting or like a period, and you may pass some tissue. You may have some cramping. This iswhy follow-up care is important. Home care To improve the chance of keeping??your , you should take these steps: ??? Rest in bed until the pain and bleeding stop. ??? Don???t have sex until your healthcare provider says it???s OK. ??? Use sanitary napkins instead of tampons. ??? Don???t douche. ??? Don???t take aspirin, ibuprofen, or naproxen. ??? Don???t have alcoholic or caffeinated beverages or smoke. ?? Follow-up care Make an appointment with your healthcare provider within the next week, or as directed. If you had an ultrasound,??a radiologist??will??review??it.??You will be told of any new findings that may affect your care. ?? Call 911 Call 911 if you have: ??? Severe pain and very heavy bleeding ??? Severe lightheadedness, passing out, or fainting ??? Rapid heart rate ??? Trouble breathing ??? Confusion or trouble waking up ?? When to seek medical advice Call your healthcare provider right away??if any of the following occur: ??? Vaginal bleeding or pain that lasts for more than 3 days ??? Heavy bleeding. This means soaking 1 new pad an hour over 3 hours. ??? Fever of 100.4??F (38??C) or higher, or as directed by your healthcare provider ??? Pain in your lower belly (abdomen) that gets worse ??? Weakness or dizziness ??? Passage of anything that resembles tissue. This would be pink or grayish membrane or solid material. Save the tissue in a clean container and bring it to your healthcare provider. ?? Last Reviewed Date: 2022 ?? 4607-2468 [employer]. All rights reserved. This information is not intended as a substitute for professional medical care. Always follow your healthcare professional's instructions. ?? * Catherine Stephens RN: PERFORM Event Display: Patient Education Leaflets Authored Date: [id number] Bleeding During Early ?? 04996 Bleeding During Early If you???ve had bleeding early in your , you???re not alone. Many other women have early bleeding, too. And in most cases, nothing is wrong. But your healthcare provider still needsto know about it. They may want to do tests to find out why you???re bleeding. Call your provider if you see bleeding during . Tell your provider if your blood is Rh negative. Then they can figure out if you need anti-D immune globulin treatment. What causes early bleeding? The cause of bleeding early in is often unknown. But many factors early on in may lead to light bleeding (called spotting) or heavier bleeding. These include: ??? Having sex ??? When the embryo implants on the uterine wall ??? Bleeding between the sac membrane and the uterus (subchorionic bleeding) ??? loss (miscarriage) ??? The embryo implants outside of the uterus (ectopic ) ?? If you see spotting Light bleeding is the most common type of bleeding in early . If you see it, call your healthcare provider. Chances are, they will tell you that you can care for yourself at home. ?? If tests are needed Depending on how much you bleed, your healthcare provider may ask you to come in for some tests. A pelvic exam, for instance, can help see how far along your is. You also may have an ultrasound or a Doppler test. These imaging tests use sound waves to check the health of your baby. The ultrasound may be done on your belly or inside your vagina. You may also need a special blood test. This test compares your hormone levels in blood samples taken 2 days apart. The results can help your provider learn more about the implantation of the embryo. Your blood type will also need to be checked to assess if you will need to be treated for Rh sensitization.?? Ultrasound can help check the health of your fetus. ?? Warning signs If your bleeding doesn???t stop or if you have any of the following, get medical care right away: ??? Soaking a sanitary pad each hour ??? Bleeding like you???re having a period ??? Cramping or severe belly pain ??? Feeling dizzy or faint ??? Tissue passing through your vagina ??? Bleeding at any time after the first trimester ?? Questions you may be asked Bleeding early in isn't normal. But it is common. If you???ve seen any bleeding, you may be concerned. But keep in mind that bleeding alone doesn???t mean something is wrong. Just be sure to call your healthcare provider right away. They may ask you questions like these to help find the cause of your bleeding: ??? When did your bleeding start? Is your bleeding very light or is it like a period? Is the blood bright red or brownish? Have you had sex recently? Have you had pain or cramping? Have you felt dizzy or faint? ?? Monitoring your Bleeding will often stop as quickly as it began. Your may go on a normal path again. You may need to make a few extra visits. But you and your baby will most likely be fine. ?? Last Reviewed Date: 2021 ?? 9976-8606 [employer]. All rights reserved. This information is not intended as a substitute for professional medical care. Always follow your healthcare professional's instructions. ?? Patient Care team information Care Team Personnel Name: Martir Redman MD , Helen Rangel Position: Reference Physician Member Role: PCP Address: Address: [address] [place] [address]- Care Team Related Persons Name: TOD KRUSE Address: [address] Address: [address] [place] [address] Name: BRITTANI GILMAN Address: [address] [place] [address] Name: PATIENT STATES, NONE Name: BULL LEE Address: home [address] [place] [address]
--- OUTSIDE RECORDS SUMMARY | 2024-06-15 09:37 | XMS_ITS | Continuity of Care Document ---
Author Organization [facility] Address [address] [place] [address]- Care Team Providers Care Line Inspector Name Role Phone Martir Redman MD, Helen Rangel Primary Care Physician Encounter [facility] Date(s): 05/10/24 - 06/09/24 [facility] [address] [place] [id number] Allergies, Adverse Reactions, Alerts No Known Allergies Immunizations Given and Recorded Vaccine Date Status Refusal Reason Measles/Mumps/Rubella Virus Vaccine 10/11/19 Given Medications albuterol CFC free 90 mcg/inh inhalation aerosol 2, puffs, Inhalation, 4 times a day, PRN, # 18 Gm, Refills 0, Tot. Refills 0, Maintenance, 01/08/2210:51:00 EDT, Aerosol, Route to Pharmacy Electronically, [id number], [facility]/pharmacy #[id number], 163, cm, 09/08/21 12:09:00 EST, Heig... [...] 0 Refills, Maintenance, 09/08/21 13:12:00 EST, Solution, [id number], Partial fill upon patient request if the prescription is for a schedule II opioid drug., 1 drops Eyes, Both 4 times a day, 163,... Start Date: 09/08/21 Status: Ordered ketorolac 0.5% ophthalmic solution 2 drops, Eyes, Both, 4 times a day, PRN Pain , Moderate, # 10 mL, 0 Refills, Maintenance, 09/08/21 12:47:00 EST, Solution, [facility] #[id number], Partial fill upon patient request if the [...] pack/packet, 0 Refills, Maintenance, 08/27/20 15:16:00 EST, [facility] #[id number], Partial fill upon patient request if the presc... Start Date: 08/27/20 Status: Ordered Problem List Condition Confirmation Course Effective Dates Status [facility] atus Informant Anxiety Confirmed Active Asthma Confirmed Active Chlamydia Confirmed 2004 Active Migraines Confirmed Active Obese class I Confirmed Active Social History Social History Type Response Smoking Status Never (less than 100 in lifetime) entered on: 09/02/19 Sex Patient Care team information Care Team Personnel Name: Martir Redman MD , Helen Rangel Position: Reference Physician Member Role: PCP Address: Address: [address] [place] [address]- Care Team Related Persons Name: MUKUL BARDALESTOD Address: Address: home [address] [place] [address] Name: BRITTANI GILMAN Address: home [address] [place] [address] Name: BULL LEE Address: home [address] [place] [id number] Name: CLARENCE BENNETT
--- OUTSIDE RECORDS SUMMARY | 2024-06-15 09:37 | XMS_ITS | Continuity of Care Document ---
Author Organization [facility] Address [address] [place] [address]- Care Team Providers Care Manager Surgery Name Role Phone Martir Redman MD, Anu Primary Care Physician [phone] Encounter [facility] Date(s): 03/22/24 - 03/23/[address] [address]- Discharge Disposition: A-D/C Walkout Attending Physician: Not on Staff, Attending MD Admitting Physician: Not on Staff, Admitting MD Referring Physician: Not on Staff, Referring MD Allergies, Adverse Reactions, Alerts No Known Allergies Immunizations Given and Recorded Vaccine Date Status Refusal Reason Measles/Mumps/Rubella Virus Vaccine 10/11/19 Given Medications albuterol CFC free 90 mcg/inh inhalation aerosol 2, puffs, Inhalation, 4 times a day, PRN, # 18 Gm, Refills 0, Tot. Refills 0, Maintenance, 01/08/2210:51:00 EDT, Aerosol, Route to Pharmacy Electronically, [id number], [facility]/pharmacy #[id number], 163, cm, 09/08/21 12:09:00 EST, Heig... [...] 0 Refills, Maintenance, 09/08/21 13:12:00 EST, Solution, [facility]/pharmacy #[id number], Partial fill upon patient request if the prescription is for a schedule II opioid drug., 1 drops Eyes, Both 4 times a day, 163,... Start Date: 09/08/21 Status: Ordered ketorolac 0.5% ophthalmic solution 2 drops, Eyes, Both, 4 times a day, PRN Pain , Moderate, # 10 mL, 0 Refills, Maintenance, 09/08/21 12:47:00 EST, Solution, [facility] #[id number], Partial fill upon patient request if the [...] 2 pack/packet, 0 Refills, Maintenance, 08/27/20 15:16:00 [facility] #[id number], Partial fill upon patient request if the presc... Start Date: 08/27/20 Status: Ordered Problem List Condition Confirmation Course Effective Dates Status [facility] Informant Anxiety Confirmed Active Asthma Confirmed Active Chlamydia Confirmed 2004 Active Migraines Confirmed Active Obese class I Confirmed Active Vital Signs Most recent to oldest [Reference Range]: 1 2 Height 163 cm (03/22/24 10:43 PM) 163 cm (03/22/24 10:38 PM) Weight 73 kg (03/22/24 10:43 PM) 73 kg (03/22/24 10:38 PM) Oxygen Saturation [94-100 %] 99 % (03/22/24 10:38 PM) Pulse Rate [55-90 bpm] 97 bpm *H* (03/22/24 10:38 PM) Body Mass Index [18.5-24.99 kg/m2] 27.48 kg/m2 *H* (03/22/24 10:38 PM) Blood Pressure [90-138/55-84 mm Hg] 112/ 64mm Hg (03/22/24 10:38 PM) Respiratory Rate [16-30 br/min] 16 br/mi n (03/22/24 10:38 PM) Temperature [96.8-100.4 DegF] 99.0 DegF (03/22/24 10:38 PM) Mode of Delivery (Oxygen) Room air (03/22/24 10:38 PM) Blood pressure sites Arm, left (03/22/24 10:38 PM) Temperature Route Oral (03/22/24 10:38 PM) Dry Weight 73 kg (03/22/24 10:43 PM) 73 kg (03/22/24 10:38 PM) Weight Obtained Via Standing scale (03/22/24 10:38 PM) Dry Weight Obtained Via Standing scale (03/22/24 10:38 PM) Social History Social History Type Response Smoking Status Never (less than 100 in lifetime) entered on: 09/02/19 Sex Patient Care team information Care Team Personnel Name: Martir Redman MD , Helen Rangel Position: Reference Physician Member Role: PCP Address: Address: [address] [place] [address]- Care Team Related Persons Name: TOD KRUSE Address: [id number] Address: home [address] [place] [address] Name: BRITTANI GILMAN Address: home [address] [place] [address] Name: BULL LEE Address: home [address] [place] [address] Name: CLARENCE BENNETT
--- OUTSIDE RECORDS SUMMARY | 2024-06-15 09:37 | XMS_ITS | Continuity of Care Document ---
Author Organization [facility] Address [address] [place] [address]- Care Team Providers Care Network Strategist Name Role Phone Martir Redman MD, Helen Rangel Primary Care Physician Encounter [facility] Date(s): 05/09/24 - 06/08/24 [facility] [address] [place] [id number] Allergies, Adverse Reactions, Alerts No Known Allergies Immunizations Given and Recorded Vaccine Date Status Refusal Reason Measles/Mumps/Rubella Virus Vaccine 10/11/19 Given Medications albuterol CFC free 90 mcg/inh inhalation aerosol 2, puffs, Inhalation, 4 times a day, PRN, # 18 Gm, Refills 0, Tot. Refills 0, Maintenance, 01/08/2210:51:00 EDT, Aerosol, Route to Pharmacy Electronically, [id number], [facility]/pharmacy #[id number], 163, cm, 09/08/21 12:09:00 EST, [...] 0 Refills, Maintenance, 09/08/21 12:47:00 EST, Solution, [facility] #[id number], Partial fill upon patient request if the [...] pack/packet, 0 Refills, Maintenance, 08/27/20 15:16:00 EST, [facility] #[id number], Partial fill upon patient request if the [...] PCP Address: Address: [address] [place] [address]- Care Team Related Persons Name: TOD KRUSE Address: Address: [address] [place] [address] Name: BRITTANI GILMAN Address: home [address] [place] [address] Name: BULL LEE Address: [address] [place] [address] Name: CLARENCE BENNETT
--- NOTE | 2024-06-15 09:38 | MHC.OFFWIV ---
Intake Vital Signs 06/15/24 09:39 Height 5 ft 5 in Weight 177 lb 6 oz BMI 29.5 BP 122/78 Blood Pressure Location Rt brachial Position Sitting Pulse 88 Pulse Source Pulse Oximeter Temp 98.3 F Temp Source Oral Pulse Oximetry (%) 98 Oxygen Delivery Method Room Air Intake Visit Reasons: EP-asthma [phone] Intake Note: Patient here for asthma flare up that has been present for about 4-5 days. She is currently 24 weeks Patient Tobacco Use Status: Never used Tobacco Allergies No Known Allergies Allergy (Verified 06/15/24 09:38) HPI HPI Comments History of Present Illness Details Patient is a 38-year-old female who is currently 24 weeks complaining of worsening shortness of breath and cough over the last 4-5 days. She tells me she has a history of asthma and used to be on a fluticasone inhaler, an albuterol inhaler and albuterol nebulizers but she has not used any of the medication in a long time. She states that she thinks with her , her asthma is getting worse. She tells me that last night she was having difficulty breathing and she was ?worried she would not wake up . She states she tried different positions but still could not breathe. She tried looking for an her inhaler but realized she did not have one. She tells me it is worse when she inhales different scents. She denies any burning in her throat or this being worse after she eats, she tells me she used to take Protonix but not for a long time now. She tells me that this is very different from her GERD cough. PFSH Surgical History H/O LEEP History of bunionectomy Family History Father Hepatitis Mother Asthma Diabetes Hypertension Maternal Grandmother Hypertension Paternal Grandmother Diabetes Hypertension Leukemia Paternal Aunt Uterine cancer Maternal Aunt Diabetes Breast cancer Social History Patient Tobacco Use Status: Never used Tobacco Review of Systems Const All systems reviewed & are unremarkable except as noted in HPI and below Physical Exam Vital Signs: Last Vital Signs Temp 98.3 F 06/15/24 09:39 Pulse 88 10/16/24 09:39 BP 122/78 06/15/24 09:39 Pulse Ox 98 06/15/24 09:39 Oxygen Delivery Method Room Air 06/15/24 09:39 BMI result Body Mass Index 29.5 Const General: cooperative, healthy appearing, comfortable and no acute distress Orientation/consciousness: patient oriented x3 Limitations: no limitations HEENT Head: Yes normal to inspection Ears: hearing grossly normal bilaterally, external ears normal and TM's normal bilaterally General nose exam: Normal external nose present, Normal nares present and No nasal discharge present Face and sinus: Yes normal facial exam and Yes sinuses nontender Mouth: Normal oral and palatal mucosa present and moist mucous membranes Throat: Yes tonsils normal, Yes uvula midline and Yes posterior oropharynx abnormal (Erythema) Eyes General: appearance normal, both eyes and all related structures Neck Neck: Yes normal visual inspection Resp Effort & Inspection: normal respiratory effort, able to speak in complete sentences, Actively coughing, no respiratory distress, not tachypneic, no tripod positioning and no use of accessory muscles Auscultation: clear to auscultation bilaterally Cardio Rate: regular rate Rhythm: regular rhythm Heart sounds: normal S1 and S2 Skin General skin exam: no rashes or lesions noted Neuro General: patient oriented x3 Extrem General: Yes normal to inspection and Yes no clubbing, cyanosis or edema Office Procedures Nebulizer Treatment Nebulizer Treatment 00465-Baazeqixp/MDI RX initial, or Nebulizer Subsequent Treatment Office Meds albuterol sulfate 2.5 mg/3 mL (0.083 %) solution for nebulization Performing Provider: Fanny Chen PA-C Performing Location: [facility] [place] [facility] Administered by: Fanny Chen PA-C on 06/15/24 10:15 Dose Route Admin Location Dispensed Lot Number Expiration Date [facility] Offset [employer] 2.5 mg inhalation 3 mL [id number] 04/24/25 0742-1168-17 MYLAN Assessment & Plan Assessment & Plan (1) Asthma exacerbation, mild: Code(s): J45.901 - Unspecified asthma with (acute) exacerbation Plan: Vital signs are stable and patient well-appearing however Patient was coughing throughout the exam and expressing shortness of breath. We did given albuterol nebulizer treatment in the office with good relief. I refilled all of her asthma medications with 1 refill as her asthma is likely getting worse due to her . I did encourage her to follow up with her PCP in 4-6 weeks. Plan see above Orders: Orders AMB Nebulizer Treatment Today J45.901 - Unspecified asthma with (acute) exacerbation Medications: New albuterol sulfate 1.25 mg (3 mL) inhalation Q4-6H PRN 90 mL 1RF Shortness Of Breath Or Wheezing albuterol sulfate 90 mcg/actuation (Ventolin HFA) 2 puffs inhalation Q4-6H PRN 8.5 grams 1RF shortness of breath or wheezing fluticasone propionate 44 mcg/actuation administer with spacer; rinse mouth each time after using 1 puff inhalation BID 10.6 grams 1RF albuterol sulfate 2.5 mg (3 mL) inhalation ONCE 3 mL 0RF wheezing J45.901 - Unspecified asthma with (acute) exacerbation Coding Level of Care Code Est Pt Level 4 (02910) Diagnoses Asthma exacerbation, mild J45.901 CPT Codes Nebulizer Treatment - Nebulizer Treatment, initial or subsequent: [id number]-Bsmzyoaau/MDI RX initial, or Nebulizer Subsequent Treatment ([id number])
[2024-06-15 09:39] VITALS: BP 122/78; PULSE 88; TEMP 36.8; O2SAT 98; BMI 29.5
== END 2024-06-15 10:31 | disposition home or self-care (01) ==
PROVIDERS: PCP Internal Medicine; Visit Provider Physician Assistant
DX: J45.901 Unspecified asthma with (acute) exacerbation (principal)

== ENCOUNTER → 2024-06-15 09:35 | Outpatient (BNVA) | payer OTHER, SELFPAY | PROVIDERS: PCP Internal Medicine; Visit Provider Physician Assistant | DX: J45.901 Unspecified asthma with (acute) exacerbation (principal) | CPT/HCPCS: 94640; 99212 ==

== ENCOUNTER 2024-07-19 09:19 | Outpatient (AMB) | payer OTHER, SELFPAY ==
--- NOTE | 2024-07-19 09:20 | MHC.PC.OV ---
Vital Signs 07/19/24 09:21 Height 5 ft 5 in Weight 176 lb BMI 29.3 BP 98/54 L Blood Pressure Location Lt brachial Position Sitting Pulse 100 Pulse Source Pulse Oximeter Pulse Oximetry (%) 97 Oxygen Delivery Method Room Air Intake Visit Reasons: new patient asthma [facility] Required: No Allergies No Known Allergies Allergy (Verified 07/19/24 10:13) Medication List - Last Reconciled 07/19/24 by Ihsan Le MD albuterol sulfate 1.25 mg (3 mL) inhalation Q4-6H PRN albuterol sulfate 90 mcg/actuation (Ventolin HFA) 2 puffs inhalation Q4-6H PRN budesonide-formoterol 160-4.5 mcg/actuation (Symbicort) 2 puffs PO BID fluticasone propionate 44 mcg/actuation 1 puff inhalation BID Tobacco use date assessed: 07/19/24 Dental Screening Dental Screen Date: 07/19/24 Did you have a dental visit in the last 12 months?: Yes Did you have a dental problem in the last 6 months where you did not have access to dental care?: No Was dental information given to patient?: Patient has dentist HPI new patient asthma HPI Details The patient is a 38-year-old female presenting with worsening asthma symptoms following a COVID-19 infection. The asthma symptoms began approximately three to four years ago, marked by difficulty breathing and a persistent cough that is notably worsened at night. The patient reports that exposure to irritants such as Clorox also exacerbates her breathing issues. She has been using an albuterol inhaler approximately 14 times a week, depending on symptom severity. She has visited urgent care previously but has not required hospital admission. Oral prednisone was used in the past but not on a regular basis. The patient is currently 29 weeks and 4 days and is not on any prescribed medications despite being advised to take vitamins and iron. Unemployed at present. - Non-smoker and denies substance use. - Resides in [place]. - Mother of three children; her eldest child has health conditions including schizophrenia, Mosaic Gomez Syndrome, and hypothyroidism. [facility] Medical History (Updated 07/19/24 @ 10:14 by Ihsan Le MD) Asthma exacerbation, mild Surgical History H/O LEEP History of bunionectomy Family History Father Hepatitis Mother Asthma Diabetes Hypertension Maternal Grandmother Hypertension Paternal Grandmother Diabetes Hypertension Leukemia Paternal Aunt Uterine cancer Maternal Aunt Diabetes Breast cancer Social History Housing: House Patient Tobacco Use Status: Never used Tobacco Current occupational status: unemployed Cognitive needs: No Hearing needs: No Vision needs: No Questionnaire PHQ-9 Over the last 2 weeks, how often have you been bothered by any of the following problems? 1. Little interest or pleasure in doing things: not at all 2. Feeling down, depressed, or hopeless: not at all 3. Trouble falling or staying asleep, or sleeping too much: nearly every day 4. Feeling tired or having little energy: nearly every day 5. Poor appetite or overeating: nearly every day 6. Feeling bad about yourself - or that you are a failure or have let yourself or your family down: not at all 7. Trouble concentrating on things, such as reading the newspaper or watching television: nearly every day 8. Moving or speaking so slowly that other people could have noticed. Or the opposite - being so fidgety or restless that you have been moving around a lot more than usual: nearly every day 9. Thoughts that you would be better off or of hurting yourself in some way: not at all Total score: 15 Depression Screening Interpretation: Positive Depression Screening Done: Yes 49404 - PHQ-9 Billing: Yes Source: Developed by Drs. Jairo Mercado, Zina Martínez, Nahum Jones and colleagues, with an educational hugh from [employer]. Thrive Questionnaire Date Thrive assessed: 07/12/24 I am a: Patient What is your living situation today?: I have a steady place to live Within the past 12 months, did the food you bought not last and you didn't have the money to get more?: Never true Within the past 12 months, did you worry whether your food would run out before you got money to buy more?: Never true Do you have trouble paying for medicines?: No Do you have trouble getting transportation to medical appointments?: No Do you have trouble paying your heating and electricity bill?: No Do you have trouble taking care of your child, family member or friend?: No Do you have trouble with day-to-day activities such as bathing, preparing meals, shopping, managing finances, etc.?: No Are you currently unemployed and looking for a job?: Yes Are you interested in more education?: Yes Please select the resources that you would like help with: None Currently or been in a relationship where the following occur: No concerns reported THRIVE Score: 0 AUDIT C Alcohol Use Questionnaire (AUDIT-C) 1. How often do you have a drink containing alcohol?: Never 3. How often do you have six or more drinks on one occasion?: Never Total Score: 0 JULIAN-7 AMB Questionnaire JULIAN-7 Date JULIAN - 7 assessed: 07/19/24 Feeling nervous, anxious, or on edge: 0 = Not at all Not being able to stop or control worryin = Not at all Worrying too much about different things: 0 = Not at all Trouble relaxin = Nearly every day Being so restless that it is hard to sit still: 3 = Nearly every day Becoming easily annoyed or irritable: 1 = Several days Feeling afraid as if something awful might happen: 0 = Not at all Total JULIAN-7 score (0-4 normal; 5-9 mild; 10-14 moderate; 15-21 severe): 7 Source: Developed by Drs. Jairo Mercado, Zina Martínez, Nahum Jones and colleagues, with an educational hugh from [employer]. JULIAN-7 Assessment Billing JULIAN-7 Assessment Tool: JULIAN-7 Assessment 09177 Review of Systems Const Details: - Respiratory: Reports persistent cough, worse at night along with difficulty breathing. - Endocrine: Denied any active thyroid issues, but plans to check during the visit. Physical exam (Primary Care) Vital Signs: Last Vital Signs Pulse 100 07/19/24 09:21 BP 98/54 L 07/19/24 09:21 Pulse Ox 97 07/19/24 09:21 Oxygen Delivery Method Room Air 07/19/24 09:21 BMI result Body Mass Index 29.3 Tobacco/Smoking Status: Tobacco use Status Tobacco use date assessed 07/19/24 07/19/24 09:21 Patient Tobacco Use Status Never used Tobacco 07/19/24 09:21 PHQ-9: PHQ-9 Score PHQ-9: Total score 15 07/19/24 10:13 Depression Screening Interpretation: Positive Thrive Assessment: Date of Thrive Assessment Date Thrive assessed 07/12/24 07/19/24 09:21 Currently or been in a relationship where the following occur: No concerns reported Const General: cooperative and healthy appearing Nutritional Appearance: well nourished Orientation/consciousness: patient oriented x3 Limitations: no limitations HENMT Head: Yes normal to inspection Eyes General: appearance normal, both eyes and all related structures Neck Neck: Yes normal visual inspection Chest Chest palpation & inspection: normal palpation of entire chest wall Resp Effort & Inspection: normal respiratory effort Neuro General: patient oriented x3 Coding Level of Care Code New Pt Level 4 (61640) Complex EM visit Add On G2211 Diagnoses Asthma exacerbation, mild J45.901 Additional Codes JULIAN-7 Assessment Billing - JULIAN-7 Assessment Tool: JULIAN-7 Assessment 78027 ([id number]) PHQ-9 - 76066 - PHQ-9 Billing: Yes ([id number]) Assessment & Plan Assessment & Plan (1) Asthma exacerbation, mild: Code(s): J45.901 - Unspecified asthma with (acute) exacerbation Category: Medical Plan: - Asthma: Initiation of an inhaler regimen, specifically prescribing Symbicort, to be used as two puffs twice daily. A referral to a city councilman will be made to further evaluate ongoing respiratory issues. - : Routine care including planned follow-up care. - Laboratory tests to check thyroid function will be ordered as upcoming blood work. Patient was informed and verbally consented to the use of an ambient scribe for clinic note documentation during this visit. Plan The patient and I discussed the likelihood of asthma as the primary diagnosis causing her symptoms. I explained the use of Symbicort, a corticosteroid, which is safe during and indicated the importance of regular use as directed. We reviewed the side effects of inhalers, including the need to rinse the mouth post-usage to avoid oral fungal infections. Given her concerns, a referral to a city councilman was arranged to provide specialized respiratory management. She expressed anxiety about her symptoms, and reassurance was provided regarding -safe asthma management. Orders: Orders Complete Blood Count no Diff Today J45.901 - Unspecified asthma with (acute) exacerbation Liver Panel Today J45.901 - Unspecified asthma with (acute) exacerbation Lipid Panel Today J45.901 - Unspecified asthma with (acute) exacerbation Basic Metabolic Panel Today J45.901 - Unspecified asthma with (acute) exacerbation Thyroid Stimulating Hormone Today J45.901 - Unspecified asthma with (acute) exacerbation UA and rflx microscopic Today J45.901 - Unspecified asthma with (acute) exacerbation Referrals Pulmonology Referral J45.90 - Unspecified asthma with (acute) exacerbation Medications: New budesonide-formoterol 160-4.5 mcg/actuation (Symbicort) 2 puffs PO BID 10.2 grams 1RF
[2024-07-19 09:21] VITALS: BP 98/54; PULSE 100; O2SAT 97; BMI 29.3
== END 2024-07-19 10:12 | disposition home or self-care (01) ==
PROVIDERS: PCP Internal Medicine; Visit Provider Internal Medicine
DX: J45.901 Unspecified asthma with (acute) exacerbation (principal)

== ENCOUNTER → 2024-07-19 09:19 | Outpatient (BNVA) | payer OTHER, SELFPAY | PROVIDERS: PCP Internal Medicine; Visit Provider Internal Medicine | DX: J45.901 Unspecified asthma with (acute) exacerbation (principal) | CPT/HCPCS: 96127; 99202 ==

== ENCOUNTER 2024-07-22 09:44 | Outpatient (AMB) | payer OTHER, SELFPAY ==
[2024-07-22 10:06] VITALS: BP 110/72; PULSE 73; TEMP 36.6; O2SAT 98
--- NOTE | 2024-07-22 10:06 | MHC.OFFWIV ---
Intake Vital Signs 07/22/24 10:06 Height 5 ft 5 in BP 110/72 Blood Pressure Location Lt brachial Position Sitting Pulse 73 Pulse Source Pulse Oximeter Temp 97.9 F Temp Source Oral Pulse Oximetry (%) 98 Intake Visit Reasons: EP sores on lips? Intake Note: pt is here for sore on lip since yesterday Patient Tobacco Use Status: Never used Tobacco Allergies No Known Allergies Allergy (Verified 07/22/24 10:06) Do you need a note to return to daycare/school/sports/work: No HPI HPI Comments History of Present Illness Details History of Present Illness The patient is a 38-year-old female presenting with sores on her lips. These sores began after her lips became dry and cracked open, leading to a possible initial trigger for the outbreak. She reports that this is her first occurrence of oral sores, which developed suddenly yesterday. The sores have transitioned in appearance and are associated with mild pain, particularly at the cracked site. The patient is currently 30 weeks and previously diagnosed with Bacterial Vaginosis. She has not noticed any previous symptoms of HSV-1. The patient expresses concern regarding the contagious nature of the sores and their potential origin, suspecting possible transmission through shared utensils or drinks. 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 The use of [id number] topical treatments, such as Abreva, was recommended as a first-line management approach, given the patient's current symptoms and the reported safety during . It is emphasized that the oral sores are contagious, and preventive measures, such as avoiding sharing drinks and kissing, should be adhered to until the sores have crusted over. An antiviral medication, such as Valacyclovir, is available if the patient opts for systemic treatment and with consideration of her stage. Regarding the bacterial vaginosis, it is noted that the condition is under treatment with metronidazole, and no further specific management is indicated during this visit beyond the expected continuation of the current regimen. Patient was informed and verbally consented to the use of an ambient scribe for clinic note documentation during this visit. [facility] Medical History (Updated 07/22/24 @ 10:23 by Fanny Chen PA-C) Asthma exacerbation, mild Surgical History H/O LEEP History of bunionectomy Family History Father Hepatitis Mother Asthma Diabetes Hypertension Maternal Grandmother Hypertension Paternal Grandmother Diabetes Hypertension Leukemia Paternal Aunt Uterine cancer Maternal Aunt Diabetes Breast cancer Social History Housing: House Patient Tobacco Use Status: Never used Tobacco Current occupational status: unemployed Cognitive needs: No Hearing needs: No Vision needs: No Physical Exam Vital Signs: Last Vital Signs Temp 97.9 F 07/22/24 10:06 Pulse 73 07/22/24 10:06 BP 110/72 07/22/24 10:06 Pulse Ox 98 07/22/24 10:06 Assessment & Plan Assessment & Plan (1) HSV-1 (herpes simplex virus 1) infection: Code(s): B00.9 - Herpesviral infection, unspecified Plan: see above Coding Level of Care Code Est Pt Level 3 (64248) Diagnoses HSV-1 (herpes simplex virus 1) infection B00.9
== END 2024-07-22 10:43 | disposition home or self-care (01) ==
PROVIDERS: PCP Internal Medicine; Visit Provider Physician Assistant
DX: B00.9 Herpesviral infection, unspecified (principal)

== ENCOUNTER → 2024-07-22 09:44 | Outpatient (BNVA) | payer OTHER, SELFPAY | PROVIDERS: PCP Internal Medicine; Visit Provider Physician Assistant | DX: B00.9 Herpesviral infection, unspecified (principal) | CPT/HCPCS: 99212 ==

== ENCOUNTER 2025-03-10 14:47 | Outpatient (REF) | payer OTHER, SELFPAY ==
[2025-03-10 17:25] LABS: Resp Syncy Virus RNA Qual PCR NEGATIVE (Negative); SARS COV2 PCR INHOUSE NEGATIVE (Negative)
== END 2025-03-10 14:48 | disposition home or self-care (01) ==
LOC: HO.LNP 14:47
PROVIDERS: PCP Internal Medicine; Visit Provider Physician Assistant
DX: J06.9 Acute upper respiratory infection, unspecified (principal); J02.9 Acute pharyngitis, unspecified; Z13.9 Encounter for screening, unspecified
CPT/HCPCS: 87637; 87880; 99212

== ENCOUNTER 2025-03-10 14:47 | Outpatient (AMB) | payer OTHER, SELFPAY ==
[2025-03-10 14:55] VITALS: BP 110/60; PULSE 84; TEMP 36.8; O2SAT 95; BMI 28.8
--- NOTE | 2025-03-10 14:55 | MHC.OFFWIV ---
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 Patient has taken TheraFlu without relief of her symptoms. She denies having any fevers, chills, ear pain, difficulty swallowing, cough or shortness for breath. [facility] Medical History (Updated 03/10/25 @ 15:28 by Zofia Hanna PA-C) Asthma exacerbation, mild Surgical History H/O LEEP History of bunionectomy Family History Father Hepatitis Mother Asthma Diabetes Hypertension Maternal Grandmother Hypertension Paternal Grandmother Diabetes Hypertension Leukemia Paternal Aunt Uterine cancer Maternal Aunt Diabetes Breast cancer Social History Housing: House Patient Tobacco Use Status: Never used Tobacco Patient : No Current occupational status: unemployed Cognitive needs: No Hearing needs: No Vision needs: No Female Reproductive History Menstrual Date of last menstrual period: 02/16/25 Review of Systems Const All systems reviewed & are unremarkable except as noted in HPI and below Denies body aches, Denies chills, Denies fatigue, Denies fever(s) and Denies headache(s) Eyes Reports no additional complaints ENT Reports no additional complaints, Denies otalgia, Denies headache(s), Denies nasal congestion, Denies post nasal drip, Denies sinus pain, Denies sinus pressure, Reports sore throat, Denies throat swelling and Denies tongue swelling Card Reports no additional complaints Resp Reports no additional complaints and Denies cough GI Reports no additional complaints Reports no additional complaints Skin/Breast Reports system reviewed and no additional complaints, except as documented Neuro Denies headache(s) Endo Denies fatigue Aller/Immun Denies throat swelling and Denies tongue swelling Physical Exam Vital Signs: Last Vital Signs Temp 98.3 F 03/10/25 14:55 Pulse 84 03/10/25 14:55 BP 110/60 03/10/25 14:55 Pulse Ox 95 03/10/25 14:55 Oxygen Delivery Method Room Air 03/10/25 14:55 BMI result Body Mass Index 28.8 Const General: cooperative, healthy appearing, comfortable, no acute distress, well developed, alert and awake; No in distress or ill appearing Nutritional Appearance: well nourished Orientation/consciousness: patient oriented x3 Limitations: no limitations HEENT Head: Yes normal to inspection and Yes normocephalic Ears: hearing grossly normal bilaterally, external ears normal, TM's normal bilaterally and EAC's normal General nose exam: Normal external nose present Face and sinus: Yes normal facial exam Mouth: Normal oral and palatal mucosa present, oropharynx normal and moist mucous membranes Throat: Yes posterior oropharynx normal (There is no edema, erythema or exudates of the posterior oropharynx) and No postnasal drainage Eyes General: appearance normal, both eyes and all related structures Neck Lymphatic: no lymphadenopathy noted Resp Effort & Inspection: normal respiratory effort, able to speak in complete sentences, no cough and not tachypneic Auscultation: clear to auscultation bilaterally Cardio Rate: regular rate Rhythm: regular rhythm Neuro General: patient oriented x3 Psych Appearance: grossly normal Mental Status: mental status grossly normal Insight: Good insight present (Psych) Judgement: Good judgement present (Psych) Results AMB Rapid Strep AMB Rapid Strep Negative Last Edit by Yadiel Azevedo CMA on 03/10/25 15:18 Results Reviewed Results Reviewed: Rapid strep is negative Assessment & Plan Assessment & Plan (1) Pharyngitis: Comment: Patient's rapid strep test is negative. Patient is requesting testing for COVID-19 as she has a 5-month-old and 5-year-old at home. SARS panel pending at this time. Code(s): J02.9 - Acute pharyngitis, unspecified Qualifiers: Pharyngitis/tonsillitis etiology: unspecified etiology Qualified Code(s): J02.9 - Acute pharyngitis, unspecified Plan: Ibuprofen or Tylenol as needed for discomfort, increase clear fluids daily. Orders: Orders AMB Rapid Strep Screen Today Z13.9 - Encounter for screening, unspecified SARS-CoV2/FLU/RSV Today J06.9 - Acute upper respiratory infection, unspecified Coding Level of Care Code Est Pt Level 3 (68493) Diagnoses Pharyngitis, unspecified etiology J02.9 Pharyngitis/tonsillitis etiology: unspecified etiology Time Spent (min) 20
== END 2025-03-10 15:47 | disposition home or self-care (01) ==
PROVIDERS: PCP Internal Medicine; Visit Provider Physician Assistant
DX: J02.9 Acute pharyngitis, unspecified (principal); Z13.9 Encounter for screening, unspecified

== ENCOUNTER 2025-04-17 10:42 | Outpatient (AMB) | payer OTHER, SELFPAY ==
[2025-04-17 10:46] VITALS: BP 110/54; PULSE 87; O2SAT 95; BMI 29.5
--- NOTE | 2025-04-17 10:46 | MHC.OFFVIS ---
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 The patient is a 39 year woman with a known history of asthma who apparently was in her usual state health until for the last few years she has had worsening respiratory symptoms. She states after she had COVID back in 2021 2022 the patient is started developing worsening respiratory symptoms. She has been having issues with cough. The cough tends to be nonproductive in nature. Tends to worsen whenever she does any kind of activity and also if she starts laughing her speaking a lot. She also has nasal congestion. She has never been tested for allergies. She does get a rash at times. Although is better at this time. She has been on Symbicort and she has been noticing some relief from the Symbicort but only partially. Also has a rescue inhaler that she uses on a regular basis. She is not taking any allergy medicines at this time. On further questioning she does state this has a scratchy throat feels like sensation or fullness in the back of the throat that also bothers her. She denies any stridor denies any angioedema. She does not have an EpiPen and has never had to use 1. She does not have any stridor on exam and the patient does have diminished breath sounds bilaterally. In addition to that she does have significant pharyngitis with some areas of irritation on lymphoid follicles. Therefore will treat her for upper airway cough syndrome at this time. She will continue with the current respiratory inhalers and will treat her for pharyngitis. The patient will undergo PFTs x-rays laboratories including allergy testing and she will return in 6-8 weeks. [facility] Medical History (Updated 04/17/25 @ 21:46 by Winston Silver MD) Chronic allergic rhinitis Upper airway cough syndrome Asthma Chronic cough Allergies Asthma exacerbation, mild Surgical History H/O LEEP History of bunionectomy Family History Father Hepatitis Mother Asthma Diabetes Hypertension Maternal Grandmother Hypertension Paternal Grandmother Diabetes Hypertension Leukemia Paternal Aunt Uterine cancer Maternal Aunt Diabetes Breast cancer Social History Housing: House Patient Tobacco Use Status: Never used Tobacco Current occupational status: unemployed Cognitive needs: No Hearing needs: No Vision needs: No Review of Systems Const Denies body aches, Denies chills, Denies fatigue, Denies fever(s) and Denies headache(s) Eyes Reports no additional complaints ENT Reports no additional complaints, Denies otalgia, Denies headache(s), Reports nasal congestion, Reports nasal discharge, Reports post nasal drip, Denies sinus pain, Denies sinus pressure, Reports sore throat, Denies throat swelling and Denies tongue swelling Card Reports no additional complaints Resp Reports no additional complaints, Reports cough and Reports wheezing GI Reports no additional complaints Reports no additional complaints Skin/Breast Reports system reviewed and no additional complaints, except as documented Neuro Denies headache(s) Endo Denies fatigue Joce/Lymph Reports no additional complaints Aller/Immun Denies throat swelling, Denies tongue swelling and Reports wheezing Physical Exam Vital Signs: Last Vital Signs Pulse 87 04/17/25 10:46 BP 110/54 L 04/17/25 10:46 Pulse Ox 95 04/17/25 10:46 Oxygen Delivery Method Room Air 04/17/25 10:46 BMI result Body Mass Index 29.5 Const General: cooperative, healthy appearing, comfortable and no acute distress HEENT General nose exam: Abnormal mucous membranes and turbinates present erythematous Mouth: Normal oral and palatal mucosa present Throat: Yes posterior oropharynx abnormal, Yes postnasal drainage and Yes cobblestoning Eyes General: appearance normal, both eyes and all related structures Neck Lymphatic: no lymphadenopathy noted Resp Effort & Inspection: normal respiratory effort and no stridor Auscultation: diminished lung sounds Cardio Rate: regular rate Rhythm: regular rhythm GI Palpation (GI): Soft to palpation Psych Appearance: grossly normal Assessment & Plan Assessment & Plan (1) Allergies: Code(s): T78.40XA - Allergy, unspecified, initial encounter Category: Medical Qualifiers: Encounter type: initial encounter Qualified Code(s): T78.40XA - Allergy, unspecified, initial encounter (2) Pharyngitis: Code(s): J02.9 - Acute pharyngitis, unspecified Category: Medical Qualifiers: Pharyngitis/tonsillitis etiology: unspecified etiology Qualified Code(s): J02.9 - Acute pharyngitis, unspecified (3) Asthma: Code(s): J45.909 - Unspecified asthma, uncomplicated Category: Medical Qualifiers: Asthma severity: moderate Asthma persistence: persistent Asthma complication type: uncomplicated Qualified Code(s): J45.40 - Moderate persistent asthma, uncomplicated (4) Chronic cough: Code(s): R05.3 - Chronic cough Category: Medical (5) Upper airway cough syndrome: Code(s): R05.8 - Other specified cough Category: Medical (6) Chronic allergic rhinitis: Code(s): J30.9 - Allergic rhinitis, unspecified Category: Medical Plan continue symbicort start Singulair start Benzanates start fluticasone Allergy testing and bloodwwork PFTs CXR/sinus xrays start Doxycyline F/U 2-3 months Orders: Orders Hypersensitive Pneumonitis Prf Today J45.909 - Unspecified asthma, uncomplicated, R05.3 - Chronic cough, R91.8 - Other nonspecific abnormal finding of lung field Resp Allergy Profile Region I Today J45.909 - Unspecified asthma, uncomplicated, R05.3 - Chronic cough, R91.1 - Solitary pulmonary nodule, T78.40XA - Allergy, unspecified, initial encounter Complete Blood Count Auto Diff Today J45.909 - Unspecified asthma, uncomplicated, R05.3 - Chronic cough Basic Metabolic Panel Today J45.909 - Unspecified asthma, uncomplicated, R05.3 - Chronic cough Immunoglobulin E Today J45.909 - Unspecified asthma, uncomplicated, R05.3 - Chronic cough Immunoglobulins,IgG IgA IgM Today J45.909 - Unspecified asthma, uncomplicated, R05.3 - Chronic cough Erythrocyte Sedimentation Rate Today J45.909 - Unspecified asthma, uncomplicated, R05.3 - Chronic cough XR sinus min 3V Today R05.3 - Chronic cough PFT pulmonary function test Today R05.3 - Chronic cough XR chest 2V Today R05.3 - Chronic cough Medications: New benzonatate 200 mg PO BID PRN 60 caps 5RF cough 30 days fluticasone propionate 50 mcg/actuation 2 sprays intranasal DAILY 15.8 mL 11RF 30 days J31.0 - Chronic rhinitis doxycycline hyclate 100 mg PO BID 20 caps 0RF 10 days montelukast 10 mg PO DAILY 30 tabs 11RF 30 days J45.909 - Unspecified asthma, uncomplicated Coding Level of Care Code New Pt Level 4 (45162) Diagnoses Allergy, initial encounter T78.40XA Encounter type: initial encounter Pharyngitis, unspecified etiology J02.9 Pharyngitis/tonsillitis etiology: unspecified etiology Moderate persistent asthma without complication J45.40 Asthma severity: moderate Asthma persistence: persistent Asthma complication type: uncomplicated Chronic cough R05.3 Upper airway cough syndrome R05.8 Chronic allergic rhinitis J30.9 Time Spent (min) 40
== END 2025-04-17 11:12 | disposition home or self-care (01) ==
LOC: HO.HPS 10:43
PROVIDERS: PCP Internal Medicine; Visit Provider Hospitalist
DX: T78.40XA Allergy, unspecified, initial encounter (principal); J02.9 Acute pharyngitis, unspecified; J45.40 Moderate persistent asthma, uncomplicated; R05.3 Chronic cough; R05.8 Other specified cough; J30.9 Allergic rhinitis, unspecified
CPT/HCPCS: 99204

== ENCOUNTER 2025-04-17 10:42 | Outpatient (REF) | payer OTHER, SELFPAY ==
[2025-04-17 11:33] LABS: MANUAL DIFF FLAG NO
[2025-04-17 11:45] LABS: Hematocrit 34.9 % (37.0-47.0); Hemoglobin 11.8 g/dl (12.0-16.0); Imm Gran Abs Auto 0.02 X10*3/uL (0.00-0.03); Imm Gran Pct Auto 0.3 % (0.0-0.4); Lymphocytes Absolute Auto 2.1 X10*3/uL (1.2-4.9); Mean Corpuscular HGB Conc 33.8 g/dl (31.0-35.0); Mean Corpuscular Hemoglobin 31.9 pg (27.0-33.0); Mean Corpuscular Volume 94.3 fL (80.0-98.0); NRBC Abs Auto 0.000 X10*3/uL (0.0-0.012); NRBC Pct Auto 0.0 /100WBC (0.0-0.2); Platelet Count 357 X10*3/uL (160-400); Red Blood Count 3.70 X10*6/uL (4.20-5.50); White Blood Count 7.5 X10*3/uL (4.8-10.8)
[2025-04-17 12:20] LABS: Anion Gap 12 (12-20); Blood Urea Nitrogen 15 mg/dL (9-16); Calcium 9.3 mg/dL (8.4-10.2); Carbon Dioxide 23 mmol/L (22-29); Chloride 107 mmol/L (96-108); Estimated Glomerular Filt Rate > 60; Potassium 3.9 mmol/L (3.3-5.1); Sodium 138 mmol/L (135-145)
[2025-04-24 09:19] LABS: Asperg fumigatus Precip Abs NEGATIVE
[2025-04-24 09:20] LABS: Micropoly faeni Abs NEGATIVE; Thermo candidus Abs NEGATIVE
[2025-04-24 09:21] LABS: Saccharo pora viridis Abs NEGATIVE
[2025-04-24 09:23] LABS: Class Mouse Urine Protein 0
[2025-04-24 09:24] LABS: Class Aspergillus fumigatus 0; Class Cat Dander 3; Class Cladosporium herbarum 0; Class Cockroach 0; Class Dermatophagoides farinae 0; Class Dog Dander 0/1; Class Timothy Grass 0; D002 - IgE D farinae <0.10; E001 - IgE Cat Dander 3.67; E005 - IgE Dog Dander 0.26; G006 - IgE Timothy Grass <0.10; I006-IgE Cockroach, German <0.10; M002 - IgE Cladosporium herbar <0.10; M003 - IgE Aspergillus fumigat <0.10
[2025-04-24 09:25] LABS: Class Alternaria alternata 0; Class Cottonwood 0; Class Mountain Cedar 0; Class Oak 0/1; Class Sycamore 0; Class Walnut Tree 0; Class White Ash 0; M006 - IgE Alternaria alternat <0.10; T006 - IgE Cedar, Mountain <0.10; T007 - IgE Oak, White 0.16; T010 - IgE Walnut <0.10; T011 - IgE Maple Leaf Sycamore <0.10; T014 - IgE Cottonwood <0.10; T015 - IgE Ash, White <0.10; T070 - IgE White Mulberry <0.10
[2025-04-24 09:26] LABS: Class Bermuda Grass 0; Class Birch 0/1; Class Common Ragweed 0; Class Derm. pterony 0; Class Elm 0; Class Mugwort 0; Class Penicillium crysogenum 0; Class White Mulberry 0; T008 IgE Elm, American <0.10; W001 - IgE Ragweed, Short <0.10; W006 - IgE Mugwort <0.10
[2025-04-24 09:27] LABS: Class Maple Box Elder 0; Class Rough Pigweed 0; Class Sheep Sorrel 0; T001 IgE Maple/Box Elder <0.10; W014 IgE Pigweed, Common <0.10; W018 IgE Sheep Sorrel <0.10
== END 2025-04-17 10:43 | disposition home or self-care (01) ==
LOC: HO.LAB 10:42
PROVIDERS: PCP Internal Medicine; Visit Provider Hospitalist
DX: T78.40XA Allergy, unspecified, initial encounter (principal); R91.1 Solitary pulmonary nodule; R05.3 Chronic cough; R91.8 Other nonspecific abnormal finding of lung field; J30.9 Allergic rhinitis, unspecified; R05.8 Other specified cough; J45.40 Moderate persistent asthma, uncomplicated
CPT/HCPCS: 36415; 80048; 82784; 82785; 85025; 85652; 86003; 86331; 86606; 86609; 99202